=== PATIENT | male | born 1965 | race Caucasian/White ===

== ENCOUNTER 2017-11-30 14:04 | Emergency (ER) | payer OTHER ==
[2017-11-30] MEDS ORDERED: PROPARACAINE 0.5% 15 ML OPHT DROP ONE (14:54)
[2017-11-30] MEDS ORDERED: FLUORESCEIN SOD/BENOXINATE HCL 20 DROPS/ML OPHT.BTL ONE (14:54)
--- NOTE | 2017-11-30 15:45 | EDPHY ---
H & P Stated Complaint: l eye irritation/may have FB Time Seen by Provider: 11/30/17 15:37 HPI/ROS: CHIEF COMPLAINT: Left eye discomfort HISTORY OF PRESENT ILLNESS: The patient presents the ED with complaints of left eye discomfort for the past week. The patient denies history of obvious or known trauma. The patient denies wearing contact lenses. He denies any vision loss. He denies additional acute complaints. REVIEW OF SYSTEMS: A comprehensive 10 point review of systems is otherwise negative aside from elements mentioned in the history of present illness. Source: Patient - Personal History Current Tetanus/Diphtheria Vaccine: Yes - Medical/Surgical History Hx Asthma: No Hx Chronic Respiratory Disease: No Hx Diabetes: No Hx Cardiac Disease: No Hx Renal Disease: No Hx Cirrhosis: No Hx Alcoholism: No Hx HIV/AIDS: No Hx Splenectomy or Spleen Trauma: No Other PMH: denies - Social History Smoking Status: Never smoked - Physical Exam Exam: Visual Acuity: noted from Nurse's notes. Pupils: equal round and reactive to light EOMI Skin: no proptosis, no periorbital erythema or swelling, no vesicles Conjunctivae: not injected, no discharge Cornea: exam with fluorescein shows small circumferential area of uptake consistent with possible mild early ulcer Anterior chamber: normal, no hyphema or hypopyon Constitutional: Initial Vital Signs Temperature (C) 36.5 C 11/30/17 14:20 Heart Rate 73 11/30/17 14:20 Respiratory Rate 17 11/30/17 14:20 Blood Pressure 121/64 H 11/30/17 14:20 O2 Sat (%) 97 11/30/17 14:20 O2 Delivery Mode Room Air Allergies/Adverse Reactions: No Known Allergies Allergy (Unverified 11/30/17 14:19) Home Medications: Medication Instructions Recorded NK [No Known Home Meds] 11/30/17 Medical Decision Making ED Course/Re-evaluation: The patient will be started on Ocuflox eyedrops 1 drop 5 times a day for next week. 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 Differential Diagnosis: Differential diagnosis considered includes corneal abrasion, corneal ulcer, conjunctivitis Departure - Departure Disposition: Home, Routine, Self-Care Clinical Impression: Corneal ulcer Condition: Good Instructions: Corneal Ulcer (ED) Additional Instructions: 1. Please use Ocuflox eyedrops 1 drop every 5 times a day to left eye. 2. Please contact Dr. Hartley for an appointment on Friday to recheck your eye in make sugar a more serious infection is not developing. 3. Take Ibuprofen or Motrin 600 mg by mouth three times a day. Referrals: Frandy Hartley MD [Medical Doctor] - As per Instructions
[2017-11-30] MEDS ORDERED: OFLOXACIN 0.3% SOLN PREPACK OPHT.BTL TAKEHOME ONE (15:51)
[2017-11-30 16:10] VITALS: BP 112/69
== END 2017-11-30 16:09 | disposition home or self-care (01) ==
DX: H16.002 Unspecified corneal ulcer, left eye (principal)

== ENCOUNTER → 2018-09-01 | Outpatient (CLI) | payer OTHER | LOC: BMCIMAGING 09:18 | PROVIDERS: ATTEND Family Medicine | DX: M47.894 Other spondylosis, thoracic region (principal); J98.11 Atelectasis ==